=== PATIENT | female | born 1985 | race Caucasian/White ===

== ENCOUNTER 2016-05-17 07:45 | Observation (INO) | payer OTHER ==
[2016-05-17] MEDS ORDERED: ONDANSETRON 4 MG/2 ML VIAL IVP PRN (08:17)
[2016-05-17] MEDS ORDERED: LR 1,000 ML IV SCH (08:30)
[2016-05-17 08:35] LABS: % IMMATURE GRANULYOCYTES 0.4 % (0.0-1.1); ABSOLUTE IMMATURE GRANULOCYTES 0.04 10^3/uL (0.00-0.10); ADD DIFF? NO; ADD MORPH? NO; ADD SCAN? NO; ATYPICAL LYMPHOCYTE FLAG 0 (0-99); FRAGMENT RBC FLAG 0 (0-99); HEMATOCRIT 35.9 % (38.0-47.0); HEMOGLOBIN 11.8 g/dL (12.6-16.3); LEFT SHIFT FLG 10 (0-99); LIPEMIA HEMOLYSIS FLAG 80 (0-99); MEAN CELL HEMOGLOBIN CONCENTR. 32.9 g/dL (32.4-36.7); MEAN CELL VOLUME 88.2 fL (81.5-99.8); MEAN PLATELET VOLUME 10.7 fL (8.7-11.7); PLATELET CLUMPS FLAG 20 (0-99); PLATELET COUNT 237 10^3/uL (150-400); RED BLOOD CELL COUNT 4.07 10^6/uL (4.18-5.33); RED CELL DISTRIBUTION WIDTH 12.9 % (11.5-15.2)
--- NOTE | 2016-05-17 09:33 | GHP ---
[f rep st] HISTORY AND PHYSICAL DATE OF ADMISSION: 05/17/2016 ADMISSION DIAGNOSES: 1. Intrauterine at 36 weeks and 3 days. 2. Nausea, vomiting, and diarrhea. HISTORY OF PRESENT ILLNESS: The patient is a 30-year-old 2, para 1-0-0- 1, at 36-3/7 weeks with an estimated due date of 06/11/2016 by LMP 09/04/2015 and confirmed by a first-trimester ultrasound at 7 weeks. The patient presents to Labor and Delivery with complaints of nausea, vomiting, diarrhea for the past 24 hours. The patient has been vomiting anywhere from 3 to 8 times an hour. Loose stools noted. She is unable to keep any liquids or food down. She did try ice chips and water this morning and was unsuccessful. The patient denies eating anything out of the ordinary. The patient is having some contractions; does not feel them when she is sleeping, but notes they are there when she is awake. States there is good movement. Denies any leakage of fluid or vaginal bleeding. The patient has good care at [facility] and presented in her first trimester. She had genetic testing done which was normal. She had some first trimester nausea and vomiting which did resolve. The patient did receive Tdap during the . A 20-week ultrasound did show a low-lying placenta. She had a followup scan at 32 weeks and low-lying placenta resolved. The patient did develop anemia of and is on iron. GBS culture not done yet. PAST OBSTETRICAL HISTORY: In 2013, the patient delivered a viable female infant at 39 weeks and 4 days, weighing 6 pounds 12 ounces under an Epidural. There was meconium-stained fluid. She had a second-degree tear. GYNECOLOGIC HISTORY: Age of menarche 11. Cycles are every 28 days for 5 days. Last menstrual period on 09/04/2015. The patient denies any history of abnormal Pap smears or any exposure to sexually transmitted diseases. PAST MEDICAL HISTORY: Unremarkable. PAST SURGICAL HISTORY: [place] teeth extraction. MEDICATIONS: Include a vitamin with DHEA. ALLERGIES: No known drug allergies. SOCIAL HISTORY: She is . Lives with her and their daughter. 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 Denies any alcohol, tobacco, or illicit drug use. LABORATORIES: A-positive, antibody negative. RPR nonreactive. Rubella immune. Hepatitis B surface antigen negative. HIV negative. Trio screen was negative in 2013. TSH 1.9. Urine culture negative. Pap, gonorrhea , and chlamydia cultures in this all negative. Verifi negative. H and H 11.5 and 33.2. One-hour Glucola 115. GBS culture not done yet. PHYSICAL EXAMINATION: VITAL SIGNS: Upon admission, vital signs are stable. The patient is afebrile. GENERAL: Alert and oriented x3. The patient does appear ill-appearing. CARDIOVASCULAR: Regular rate and rhythm. LUNGS: Clear to auscultation. ABDOMEN: Gravid, soft, nontender. PELVIC: Exam deferred. EXTREMITIES: Normal to inspection, without edema or calf tenderness. On the monitor, the heart tracing is Category 1, with a baseline of 140 beats per minute. Positive accels. No decels. Moderate variability. Contractions are anywhere from 7 to 10 minutes. ASSESSMENT AND PLAN: The patient is a 30-year-old 2, para 1-0-0-1, at 36-3/7 weeks who presents with nausea, vomiting, and diarrhea. 1. Admit to Labor and Delivery for observation. 2. We will do IV fluids, bolus of LR. 3. Antiemetics as needed, will start with Zofran. 4. Will do NST. 5. Will try to feed the patient some crackers and water, and see if she keeps that down prior to discharge. /[id number]/MODL MTDD
[2016-05-17] MEDS ORDERED: FAMOTIDINE 20 MG/NACL 50 ML IV ONE (12:30)
== END 2016-05-17 14:40 | disposition home or self-care (01) ==
LOC: FLD 07:45
PROVIDERS: ADMIT Obstetrics & Gynecology; ATTEND Obstetrics & Gynecology
DX: O21.8 Other vomiting complicating pregnancy (principal); Z3A.36 36 weeks gestation of pregnancy
CPT/HCPCS: 59025; G0378; J2405

== ENCOUNTER 2016-06-08 18:22 | Observation (INO) | payer OTHER ==
--- NOTE | 2016-06-08 21:15 | OBPROG ---
OBG Progress Note Assessment/Plan: Assessment: /-3 cephalic soft posterior per nurse exam irregular contractions minimal pain cat 1 fhr discharge instructions with fu in office tomorrow ok with poc Plan:discharge to home with instructions movement leaking bleeding labor precautions reasons to call verbalized understanding per nurse of reasons to call 06/08/16 21:11 06/08/16 21:16 Subjective: Feeling irregular contractions. States they feel like marita cardenas contractions again - SVE Dilation (cm): 1 Effacement (%): 50 Station: -3 Current Contraction Pattern: Regular FHR (bpm): 125 FHR Pattern Variability: Moderate FHR Category: 1 Membranes: Intact - Physical Exam General Appearance: WD/WN, alert, no apparent distress Abdomen: other (soft on palpation) Membranes: Intact Extremities: normal range of motion, Sander's sign (negative homens ) DTR- Lower Extremities: Knee (R): 1+, Knee (L): 1+ (no clonus) Skin: normal color, warm/dry Neuro/Psych: no motor/sensory deficits, alert, normal mood/affect, oriented x 3 (per loree hampton physical exam) ICD10 Worksheet Patient Problems: Problems Problem Status Onset Nausea vomiting and diarrhea Acute 36 weeks gestation of Acute
--- NOTE | 2016-06-08 21:48 | GHP ---
[f rep st] PREOP HISTORY AND PHYSICAL DATE OF ADMISSION: 06/08/2016 PRESENTATION DIAGNOSIS: Intrauterine at 39-4/7 weeks' gestation with contractions for a l abor check. HISTORY OF PRESENT ILLNESS: The patient is a 30-year-old 2, para 1-0-0-1, with a last menst rual period of 09/04/2015, and an EDC of 06/11/2016, which was confirmed by an 8-week ultrasound. S he has had good care at [facility] since registration at 8 weeks' gestation, and she has no significant risk factors. On her 20 week ultrasound, she had a low-lying placen ta, but it was cleared by 28 weeks. She began having increased uterine contractions over the course of the day on the 1st. They were increasing in intensity and frequency. When she presented to Lab or and Delivery, she said they are approximately 5 minutes apart. No leakage of fluid. No vaginal bleeding. No other significant complaints. Negative review of systems. On evaluation, heart tones were 120s and reactive, moderate variability, category 1, contractions were irregular, cervix is 1, 60% and high. Baby is cephalic. PAST OBSTETRICAL HISTORY: In November 2013, she had a viable female who weighed 6 pounds, 12 ounces with 24 hour labor. No complications, and this is her 2nd . PAST MEDICAL HISTORY: She has no past medical history. PAST SURGICAL HISTORY: Only includes wisdom teeth extraction. PAST GYNECOLOGICAL HISTORY: She has no significant gynecological problems. She had a normal menstr ual triad. Has used control pills and a Mirena for contraception. This was a planned pregnan cy. 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 She d enies tobacco, alcohol, and drug use. FAMILY HISTORY: Her sister has asthma. Mother has hypothyroidism. Father has GERD. Paternal gran dmother of ALS. Paternal grandfather had lung cancer. Paternal grandmother had ovarian cancer . Both her mother and sister have depression. OBJECTIVE: Today, the patient is afebrile. Vital signs are stable. heart tones are 120s, re active, moderate variability, category 1. Contractions are irregularly. Cervix again is 1, 60 and high. ASSESSMENT/PLAN: A 30-year-old, 2, para 1-0-0-1 at 39-4/7th weeks' gestation in prodromal l abor. The patient will ambulate for 2 hours. We will do a cervical recheck and see if labor progre sses. /[id number]/MODL
== END 2016-06-08 21:20 | disposition home or self-care (01) ==
LOC: INTOOBSV 18:22 → FLD 18:22
PROVIDERS: ADMIT Advanced Practice Midwife; ATTEND Obstetrics & Gynecology
DX: O47.1 False labor at or after 37 completed weeks of gestation (principal); Z3A.39 39 weeks gestation of pregnancy
CPT/HCPCS: G0378 ×2

== ENCOUNTER 2016-06-14 19:20 | Inpatient (IN) | payer OTHER ==
[2016-06-14] MEDS ORDERED: TERBUTALINE SULFATE 1 MG/ML VIAL IV PRN (19:47)
[2016-06-14] MEDS ORDERED: LR 1,000 ML IV PRN (19:47)
[2016-06-14] MEDS ORDERED: OLIVE OIL 118 ML BTL MISC PRN (19:47)
[2016-06-14] MEDS ORDERED: OXYTOCIN/RINGERS LACTATE 1,000 ML IV PRN (19:47)
[2016-06-14] MEDS ORDERED: LIDOCAINE 1% 30 ML SDV SC PRN (19:47)
[2016-06-14] MEDS ORDERED: EPSOM SALT 454 GM TP PRN (19:47)
[2016-06-14] MEDS ORDERED: IBUPROFEN 600 MG TAB PO PRN (19:47)
[2016-06-14 20:23] LABS: % IMMATURE GRANULYOCYTES 0.6 % (0.0-1.1); ABSOLUTE IMMATURE GRANULOCYTES 0.07 10^3/uL (0.00-0.10); ADD DIFF? NO; ADD MORPH? NO; ADD SCAN? NO; ATYPICAL LYMPHOCYTE FLAG 0 (0-99); FRAGMENT RBC FLAG 0 (0-99); HEMATOCRIT 33.2 % (38.0-47.0); HEMOGLOBIN 10.8 g/dL (12.6-16.3); LEFT SHIFT FLG 0 (0-99); LIPEMIA HEMOLYSIS FLAG 80 (0-99); MEAN CELL HEMOGLOBIN 27.3 pg (27.9-34.1); MEAN CELL HEMOGLOBIN CONCENTR. 32.5 g/dL (32.4-36.7); MEAN CELL VOLUME 83.8 fL (81.5-99.8); MEAN PLATELET VOLUME 10.5 fL (8.7-11.7); PLATELET CLUMPS FLAG 40 (0-99); PLATELET COUNT 268 10^3/uL (150-400); RED BLOOD CELL COUNT 3.96 10^6/uL (4.18-5.33); RED CELL DISTRIBUTION WIDTH 13.8 % (11.5-15.2)
[2016-06-14] MEDS ORDERED: LIDOCAINE 1% 30 ML SDV ONE (21:08)
[2016-06-14] MEDS ORDERED: OLIVE OIL 118 ML BTL ONE (21:08)
[2016-06-14] MEDS ORDERED: MISOPROSTOL 200 MCG TAB ONE (21:09)
[2016-06-14] MEDS ORDERED: OXYTOCIN 10 UNIT/ML VIAL ONE (21:09)
[2016-06-14] MEDS ORDERED: TERBUTALINE SULFATE 1 MG/ML VIAL ONE (21:09)
[2016-06-14] MEDS ORDERED: AMMONIA AROMATIC 1 EACH AMP IH ONE (21:09)
[2016-06-14] MEDS ORDERED: BUPIVACAINE 0.25% 30 ML SDV ONE (21:29)
[2016-06-14] MEDS ORDERED: PHENYLEPHRINE HCL 100 MCG/ML SYR ONE (21:29)
[2016-06-14] MEDS ORDERED: fentaNYL 100 MCG/2 ML INJ ONE (21:29)
[2016-06-14] MEDS ORDERED: fentaNYL 2MCG/ML/BUP 0.1% RTU 100 ML BAG EP ONE (21:29)
[2016-06-14] MEDS ORDERED: PHENYLEPHRINE HCL 100 MCG/ML SYR IVP PRN (22:08)
[2016-06-14] MEDS ORDERED: ONDANSETRON 4 MG/2 ML VIAL IVP PRN (22:08)
[2016-06-14] MEDS ORDERED: fentaNYL 2MCG/ML/BUP 0.1% RTU 100 ML EP SCH (22:30)
[2016-06-14] MEDS ORDERED: LR 500 ML IV SCH (22:30)
--- NOTE | 2016-06-14 22:33 | OBPROG ---
OBG Progress Note Assessment/Plan: Assessment: 30 y/op @ 40 3/7 wks who presents in active labor Plan: Continue expectant management GBS negative s/p epidural SROM - clear fluid Anticipate 06/14/16 22:30 Subjective: Pt is comfortable, s/p epidural. Objective: 06/14/16 20:05 Patient ABO/Rh O POSITIVE 06/14/16 20:05 - SVE Dilation (cm): 9 Effacement (%): 100 Station: +1 Current Contraction Pattern: Regular FHR (bpm): 130 FHR Pattern Variability: Moderate FHR Category: 2 (early and intermittent variable decels) Membranes: SROM Amniotic Fluid Color: Clear - Physical Exam General Appearance: WD/WN, alert, no apparent distress ICD10 Worksheet Patient Problems: Problems Problem Status Onset Active labor at term Acute
--- NOTE | 2016-06-14 22:41 | GHP ---
[f rep st] HISTORY AND PHYSICAL DATE OF ADMISSION: 06/14/2016 ADMITTING DIAGNOSES: 1. Intrauterine at 40 and 3/7 weeks. 2. Active labor. HISTORY OF PRESENT ILLNESS: Patient is a 30-year-old, 2, para 1-0-0-1, at 40 and 3/7 weeks, with an estimated due date 06/11/2016, by last menstrual period 09/04/2015, and consistent with first trimester ultrasound at 7 weeks. Patient presents to Labor and Delivery with complaints of contractions worsening throughout the day, now every 3-5 minutes and painful. Denies any leakage of fluid or vaginal bleeding. States there is good movement in between contractions. The patient does have good care at [facility], and presented in her first trimester. is uncomplicated. Patient did accept genetic testing and all genetic testing was negative. On 20- week ultrasound, there was a low-lying anterior placenta. This was followed up in the third trimester and did resolve. Patient did receive Tdap. The patient developed anemia of , and is tolerating iron. GBS culture is negative. PAST GYNECOLOGIC HISTORY: Age of menarche 11 years, Cycles are every 28 days for 5 days. LMP 09/04/2015. The patient denies history of abnormal Pap smears or any exposure to any sexually transmitted diseases. PAST OBSTETRICAL HISTORY: Full-term vaginal delivery in November 2013, viable female infant, weighing 6 pounds 12 ounces at 39 weeks and 4 days. The patient did get an epidural, and there was meconium-stained fluid. PAST MEDICAL HISTORY: Unremarkable. PAST SURGICAL HISTORY: [place] teeth extraction. MEDICATIONS: vitamins, iron. ALLERGIES: No known drug allergies. FAMILY HISTORY: Mother with hypothyroidism and depression. Sister with asthma and depression. Paternal grandfather, lung cancer. Maternal grandmother, ovarian cancer. Paternal grandfather, skin cancer and prostate cancer. SOCIAL HISTORY: Patient is . Lives with her , and their daughter. 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 Denies any alcohol, tobacco or illicit drug use. LABS: A-positive, antibody negative. Rubella immune. RPR nonreactive. Hepatitis B surface antigen negative. HIV negative. TSH 1.9. Verifi negative. Pap, GC/chlamydia cultures all negative. Hemoglobin and hematocrit 11.5/33.2. One-hour Glucola 115. GBS is negative. PHYSICAL EXAMINATION: VITAL SIGNS: On admission, vital signs are stable. Patient is afebrile. GENERAL APPEARANCE: Well-nourished, well-developed female in mild distress. Alert and oriented x3. CARDIOVASCULAR: Regular rate and rhythm. LUNGS: Clear to auscultation. ABDOMEN: Gravid, soft, nontender, nondistended. EXTREMITIES: Normal to inspection, without edema, calf tenderness. PELVIC: She was found to be 3-4 cm dilated, 100% effaced, -1 station. heart tones are category 1 tracing, baseline of 130 bpm, positive accels, no decelerations, moderate variability. TOCO, she is arnulfo every 3-4 minutes. ASSESSMENT: The patient is a 30-year-old, 2, para 1-0-0-1, at 40 and 3/ 7 weeks, who presents in active labor. PLAN: 1. Admit to Labor and Delivery for expectant management. 2. GBS is negative. No prophylactic antibiotics needed. 3. Patient is considering an epidural. 4. Anticipate spontaneous vaginal delivery. /[id number]/MODL MTDD
[2016-06-14] MEDS ORDERED: OXYTOCIN/RINGERS LACTATE 30 UNIT/500 ML BAG IV ONE ×3 (23:12)
[2016-06-15 00:21] LABS: BASE EXCESS CORD -12.3 mEq/L (-13.6--3.2); CORD BLOOD PCO2 66.8 mmHg (37-60); PH ARTERIAL CORD BLOOD 7.1 (7.10-7.37)
[2016-06-15 00:26] LABS: PH VENOUS CORD BLOOD 7.16 (7.20-7.42)
[2016-06-15] MEDS ORDERED: HYDROCORTISONE 0.5% CREAM TP PRN (00:30)
[2016-06-15] MEDS ORDERED: SIMETHICONE 80 MG TAB CHEW PO PRN (00:30)
--- NOTE | 2016-06-15 00:30 | OBPROC ---
- Labor and Delivery Onset of Contractions Date: 06/15/16 Onset of Contractions Time: 15:00 Onset of Contractions Type: Spontaneous Rupture of Membranes Date: 06/14/16 Rupture of Membranes Time: 21:55 Rupture of Membranes Type: Spontaneous Amniotic Fluid Color: Clear Dilation Complete Time: 22:43 Delivery Type: Spontaneous Placenta Delivery Date: 06/15/16 Placenta Delivery Time: 00:20 Episiotomy/Laceration: Other (Specify) (intact) Repair: Other (Specify) (none) EBL: 300cc Complications: Nuchal Cord (Tight-cut on perineum) Cord Gases: Cord Gases Cord Blood PCO2 66.8 mmHg (37-60) H 06/15/16 00:03 Cord Base Excess -12.3 mEq/L (-13.6--3.2) 06/15/16 00:03 Cord ABG pH 7.10 (7.10-7.37) 06/15/16 00:03 Cord VBG pH 7.16 (7.20-7.42) L 06/15/16 00:03 - Medications Labor Augmentation/Induction Meds Used: None Anesthesia: Epidural - Info A Delivery Date: 06/15/16 Delivery Time: 00:03 Sex of : Female Score (1 Min): 7 Score (5 Min): 8
[2016-06-15] MEDS: IBUPROFEN 600 MG TAB PO PRN ×4 (01:02→19:49)
[2016-06-15] MEDS: HYDROCODONE/APAP 5/325 TAB PO PRN ×4 (03:11→19:49)
--- NOTE | 2016-06-15 07:45 | SOAPPROG ---
SOAP Progress Note Assessment/Plan: Assessment: well. pain well managed ff@u scant rubra lochia voiding without difficuty nipples intact no redness or breakdown Plan:pp day1 expectant management of labor 06/15/16 07:36 Subjective: Doing well. Denies difficulties. It was faster this time. I feel better than after my last child. Objective: Vital Signs Temp Pulse Resp BP Pulse Ox 36.8 C 96 16 115/61 06/15/16 03:34 06/15/16 03:34 06/15/16 03:34 06/15/16 03:34 Laboratory Results 06/14/16 20:05 06/14/16 06/15/16 06/16/16 05:59 05:59 05:59 Output Total 1750 Balance -1750 - Time Spent With Patient Time Spent With Patient: 15 minutes - Pending Discharge Pending Discharge Within 24 Hours: Yes Pending Discharge Date: 06/16/16 Pending Discharge Time: 11:00 Physical Exam - Physical Exam General Appearance: WD/WN, alert, no apparent distress Pelvic Exam: vaginal bleeding (scant rubra lochia) Skin: normal color, warm/dry Extremities: normal range of motion, Sander's sign (negative bilaterally), other (dtrs1+ bilaterally) Neuro/Psych: no motor/sensory deficits, alert, normal mood/affect, oriented x 3 ICD10 Worksheet Patient Problems: Problems Problem Status Onset Active labor at term Acute
[2016-06-15] MEDS: IRON POLYSAC/IRON HEME 28 MG TAB PO SCH (07:51)
[2016-06-15] MEDS: DOCUSATE SODIUM 100 MG CAP PO PRN ×2 (08:47→19:49)
[2016-06-16] MEDS: IBUPROFEN 600 MG TAB PO PRN ×2 (02:51→09:16)
--- NOTE | 2016-06-16 08:21 | OBPROG ---
OBG Progress Note Assessment/Plan: Assessment: 1) s/p - PPD # 1 - pt is stable 2) Anemia - pt is asymptomatic Plan: Continue routine pp care Plan for d/c home later today Instructions reviewed No Rx given Cont PNV and iron Pelvic rest RTC in 4 and 6 weeks 06/16/16 08:18 Subjective: Pt seen and examined. Doing well with no complaints. Minimal cramping. Moderate lochia. Mely regular diet, voiding and passing flatus. No BM. BF without difficulty. Wants to go home today. Objective: 06/14/16 20:05 Patient ABO/Rh O POSITIVE 06/14/16 20:05 Temp Pulse Resp BP Pulse Ox 36.6 C 82 18 101/68 95 06/15/16 20:00 06/15/16 20:00 06/15/16 20:00 06/15/16 20:00 06/15/16 20:00 Uterine Position/Fundal Height: Umbilicus -2 Uterine Tone: Firm - Physical Exam General Appearance: WD/WN, alert, no apparent distress Respiratory: lungs clear Cardiac/Chest: regular rate, rhythm Abdomen: normal bowel sounds, non-tender, soft, flatus (+) Genitourinary: lochia (moderate) Extremities: non-tender, normal inspection Neuro/Psych: alert, normal mood/affect, oriented x 3 ICD10 Worksheet Patient Problems: Problems Problem Status Onset (spontaneous vaginal delivery) Acute Active labor at term Acute
[2016-06-16] MEDS: DOCUSATE SODIUM 100 MG CAP PO PRN (09:16)
[2016-06-16] MEDS: IRON POLYSAC/IRON HEME 28 MG TAB PO SCH (09:16)
[2016-06-16 10:00] VITALS: BP 110/73; PULSE 95; RESP 16; TEMP 98.2; O2SAT 96
--- NOTE | 2016-06-18 11:41 | POSTANESTH ---
Post Anesthetic Evaluation Cardiovascular Status: Normal, Stable Respiratory Status: Normal, Stable Level of Consciousness/Mental Status: Can Participate in Eval Pain Control: Adequate, Prn Tx Ordered Nausea/Vomiting Control: Adequate, Prn Tx Ordered Complications Possibly Related to Anesthesia: None Noted (questions answered)
== END 2016-06-16 12:30 | disposition home or self-care (01) | DRG 775 ==
LOC: OBSVTOIN 19:20 → FLD 19:20 → FOB 06-15 03:05
PROVIDERS: ADMIT Obstetrics & Gynecology; ATTEND Obstetrics & Gynecology
PROC: 10E0XZZ Delivery of Products of Conception, External Approach (ICD-10-PCS; principal; 2016-06-14)
DX: O48.0 Post-term pregnancy (principal); O69.81X0 Labor and delivery complicated by cord around neck, without compression, not applicable or unspecified; O90.81 Anemia of the puerperium; Z3A.40 40 weeks gestation of pregnancy; Z37.0 Single live birth
CPT/HCPCS: J2370; J2590; J3010; J3105